=== PATIENT | female | born 2000 | race Caucasian/White ===

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

== ENCOUNTER 2022-12-12 05:03 | Emergency (ER) | payer MEDICAID ==
[~2022-12-12] VITALS: Ht 167.6 cm; Wt 120.2 kg
[2022-12-12 05:09] VITALS: BP 122/71
--- NOTE | 2022-12-12 05:14 | NUR ---
to bed 7
--- NOTE | 2022-12-12 05:17 | NUR ---
c/o sore throat x 3 weeks, per pt was prescribed and completed amoxicillin from pcp. pt also c/o cough and difficulty breathing. denies pmhx, denies any allergies.
--- NOTE | 2022-12-12 05:32 | NUR ---
Dr. Montemayor by bedside evaluating patient
[2022-12-12] MEDS ORDERED: DEXAMETHASONE 10 MG/ML VIAL PO ONE (05:35)
[2022-12-12] MEDS ORDERED: KETOROLAC 30 MG/ML VIAL IM ONE (05:35)
--- NOTE | 2022-12-12 05:57 | NUR ---
swabs collected sent to lab
[2022-12-12] MEDS ORDERED: AZIT250T3 PO (06:27)
[2022-12-12] MEDS ORDERED: ACET-8905 PO (06:27)
[2022-12-12] MEDS ORDERED: NAPR-54 PO (06:27)
[2022-12-12] MEDS ORDERED: AMOX-1230 PO (06:30)
[2022-12-12 06:40] VITALS: BP 122/71
--- NOTE | 2022-12-12 06:41 | NUR ---
Patient discharged with v/s stable. Written and verbal after care instructions given and explained. New rx for amoxicllin, norco, and naproxen Patient verbalized understanding. Carried with steady gait. All questions addressed prior to discharge. Advised to follow up with PMD.
== END 2022-12-12 06:41 | disposition home or self-care (01) ==
LOC: MED 05:03
DX: J02.9 Acute pharyngitis, unspecified (principal); J45.909 Unspecified asthma, uncomplicated; Z98.890 Other specified postprocedural states; Z79.1 Long term (current) use of non-steroidal anti-inflammatories (NSAID); Z79.891 Long term (current) use of opiate analgesic; Z79.2 Long term (current) use of antibiotics
CPT/HCPCS: 87081; 96372; 99283; J1100; J1885

== ENCOUNTER 2023-01-04 16:44 | Emergency (ER) | payer MEDICAID ==
[~2023-01-04] VITALS: Ht 167.6 cm; Wt 126.1 kg
[~2023-01-04 16:44] MED LIST: ACET-8905 PO; AMOX-1230 PO; NAPR-54 PO
[2023-01-04 16:54] VITALS: BP 126/80
--- NOTE | 2023-01-04 17:45 | NUR ---
AMB BED 3
--- NOTE | 2023-01-04 18:03 | NUR ---
here for throat pain, has muffled voice, denies any sob, o2 sat 99% ra, st on cm, hr 130, sr up times 2, awaits md fu
[2023-01-04] MEDS ORDERED: NACL 0.9% 2,500 ML IV ONE (19:55)
[2023-01-04] MEDS ORDERED: PIPERACILLIN/TAZOBACTAM 3.375 GM in DEXTROSE 5% 50 ML IV ONE (19:55)
[2023-01-04] MEDS ORDERED: methylPREDNISolone SS 125 MG in WATER STERILE 2 ML IV ONE (19:55)
[2023-01-04] MEDS ORDERED: PIPERACILLIN/TAZOBACTAM 3.375 GM VIAL IV ONE (20:26)
--- NOTE | 2023-01-04 20:37 | NUR ---
22G IV CATH STARTED R AC
[2023-01-04 20:59] LABS: HEMATOCRIT 40.9 % (36-48); HEMOGLOBIN 13.4 g/dL (12.0-16.0); MEAN CORPUSCULAR HEMOGLOBIN 27 pg (27-31); MEAN CORPUSCULAR HGB CONC 33 g/dL (33-37); MEAN CORPUSCULAR VOLUME 81.4 fL (80-94); PLATELET COUNT (AUTO) 226 K/uL (140-450); RED BLOOD CELL COUNT(AUTO) 5.02 MIL/uL (4.20-5.40); RED CELL DISTRIBUTION WIDTH 15.8 % (11.6-13.7); WHITE BLOOD COUNT (AUTO) 11.5 K/uL (4.5-11.0)
[2023-01-04 21:15] LABS: ALBUMIN 3.4 g/dL (3.4-5.0); ANION GAP 15.4 (8-16); CARBON DIOXIDE 26.2 mmol/L (21-32); CREATININE 0.9 mg/dL (0.6-1.3); POTASSIUM 3.6 mmol/L (3.5-5.1); TOTAL BILIRUBIN 0.4 mg/dL (0.0-1.0)
--- NOTE | 2023-01-04 21:36 | NUR ---
Labs collected and sent to lab
[2023-01-04 21:44] LABS: LYMPHOCYTES % (MANUAL) 62 % (20-46); MONOCYTES % (MANUAL) 14 % (5-12)
--- NOTE | 2023-01-05 07:22 | NUR ---
report received from fredy galvez
--- NOTE | 2023-01-05 07:23 | NUR ---
Spoke with Britt from case management regarding patient transfer who gave number for Dr. Souza ENT. Dr. Souza paged - [phone].
--- NOTE | 2023-01-05 07:26 | NUR ---
pt c/o of ongoing throat pain 05/22, + some diff swallowing. no sob. aox4.
[2023-01-05] MEDS ORDERED: KETOROLAC 15 MG/ML VIAL IVP ONE (08:10)
--- NOTE | 2023-01-05 08:19 | NUR ---
PT DENIES , EDUCATED ON TORADOL EFFECTS ON . PT OKAYED TORADOL W/O PREG TEST.
[2023-01-05] MEDS ORDERED: PIPERACILLIN/TAZOBACTAM 2.25 GM in DEXTROSE 5% 50 ML IV ONE (08:25)
[2023-01-05] MEDS ORDERED: PIPERACILLIN/TAZOBACTAM 2.25 GM VIAL IV ONE (08:43)
--- NOTE | 2023-01-05 08:59 | NUR ---
md medel at bedside, aware of pt ongoing pain, and tachycardia 110-120s and okayed for discharged after abx.
[2023-01-05] MEDS ORDERED: AMOX-999 PO (09:02)
[2023-01-05] MEDS ORDERED: METH4TAB1 PO (09:02)
[2023-01-05] MEDS ORDERED: ACYC400T14 PO (09:02)
[2023-01-05] MEDS ORDERED: IBUP-1842 PO (09:02)
[2023-01-05 09:34] VITALS: BP 110/63
--- NOTE | 2023-01-05 09:36 | NUR ---
Patient discharged with v/s stable. Written and verbal after care instructions given and explained. Patient alert, oriented and verbalized understanding of instructions. Ambulatory with steady gait. All questions addressed prior to discharge. ID band removed. Patient advised to follow up with PMD. Rx of acyclovir, augmentin, ibuprofen, methylprednisolone given. Patient educated on indication of medication including possible reaction and side effects. Opportunity to ask questions provided and answered.
== END 2023-01-05 09:34 | disposition home or self-care (01) ==
LOC: MED 16:44
DX: J03.90 Acute tonsillitis, unspecified (principal); Z20.822 Contact with and (suspected) exposure to COVID-19; J45.909 Unspecified asthma, uncomplicated; Z79.899 Other long term (current) drug therapy; Z79.2 Long term (current) use of antibiotics; Z79.1 Long term (current) use of non-steroidal anti-inflammatories (NSAID)
CPT/HCPCS: 36415; 70490; 80053; 83605; 85025; 87040; 87426; 96365; 96366; 96375; 99285; J1885; J2543; J7030